=== PATIENT | female | born 1965 | race Hispanic/Latino ===

== ENCOUNTER 2016-11-04 11:15 | Emergency (ER) | payer OTHER ==
[2016-11-04 12:17] VITALS: BMI 25.6
[2016-11-04 12:19] VITALS: BP 145/98; PULSE 82; RESP 19; TEMP 98.8; O2SAT 98
--- NOTE | 2016-11-04 12:54 | ED PDOC ---
HPI: Wound Care - HPI Time Seen by Provider: 11/04/16 12:15 Chief Complaint (Nursing): Suture/Staple Removal Chief Complaint (Provider): Suture Removal History Per: Patient Exam Limitations: no limitations Additional Complaint(s): Dominga Allison is a 51 year old female that presents to the ED in need of suture removal. Patient had three sutures placed on the left side of her forehead three weeks ago after a syncopal episode. Past Medical History Reviewed: Historical Data, Nursing Documentation, Vital Signs Vital Signs: Last Vital Signs Temp 98.8 F 11/04/16 12:17 Pulse 82 11/04/16 12:17 Resp 19 11/04/16 12:17 BP 145/98 H 11/04/16 12:17 Pulse Ox 98 11/04/16 12:17 - Family History Family History: States: Unknown Family Hx - Allergies Allergies/Adverse Reactions: Allergies Allergy/AdvReac Type Severity Reaction Status Date / Time No Known Allergies Allergy Verified 11/04/16 12:38 Review of Systems ROS Statement: Except As Marked, All Systems Reviewed And Found Negative Physical Exam - Reviewed Nursing Documentation Reviewed: Yes Vital Signs Reviewed: Yes - Physical Exam Appears: Positive for: Non-toxic, No Acute Distress Head Exam: Positive for: ATRAUMATIC, NORMOCEPHALIC Skin: Positive for: Warm. Negative for: Normal Color (Healed laceration with 3 intact sutures on the left forehead, no surrounding erythema ) Eye Exam: Positive for: Normal appearance Neurologic/Psych: Positive for: Alert, Oriented, Gait - ECG O2 Sat by Pulse Oximetry: 98 (RA) Pulse Ox Interpretation: Normal Medical Decision Making Medical Decision Making: Impression: Suture Removal Plan: * Patient tolerated suture removal well, is stable for discharge home. Scribe Attestation: Documented by Mirta Miguel, acting as a scribe for Bhavani J Kotuski, PA-C. Provider Scribe Attestation: All medical record entries made by the Scribe were at my direction and personally dictated by me. I have reviewed the chart and agree that the record accurately reflects my personal performance of the history, physical exam, medical decision making, and the department course for this patient. I have also personally directed, reviewed, and agree with the discharge instructions and disposition. Disposition - Clinical Impression Clinical Impression: Removal of suture - Patient ED Disposition Is Patient to be Admitted: No - Disposition Disposition: Routine/Home Disposition Time: 12:48 Condition: STABLE Instructions: Stitches Removal (ED)
== END 2016-11-04 13:56 | disposition home or self-care (01) ==
LOC: H.ER 11:15
DX: Z48.02 Encounter for removal of sutures (principal)